=== PATIENT | female | born 1970 | race Caucasian/White ===

== ENCOUNTER 2019-11-27 12:13 | Inpatient (IN) | payer BC, SELFPAY ==
[2019-11-27] VITALS (32 sets, daily range): BP systolic 80–113; BP diastolic 56–73; PULSE 56–84; RESP 18–30; TEMP 35.1–36.7; O2SAT 82–100; BMI 53.5
--- NOTE | ~2019-11-27 | XR_ITS ---
EXAMINATION: XR chest 1V portable DATE: 11/28/2019 19:08 INDICATION: Shortness of breath. COVID-19 pneumonia. TECHNIQUE: A single frontal view of the chest was obtained. COMPARISON: Chest single view 11/27/2019 FINDINGS: There are patchy airspace opacities in all lung zones bilaterally. No pleural effusion or p neumothorax. The heart size is normal. IMPRESSION: 1. Worsened diffuse lung disease, consistent with pneumonia versus acute respiratory distress syndrom e (ARDS). Reviewed, dictated and finalized at location A. IMPRESSION: 1. Worsened diffuse lung disease, consistent with pneumonia versus acute respir atory distress syndrome (ARDS).
--- NOTE | ~2019-11-27 | XR_ITS ---
EXAMINATION: XR chest 1V portable DATE: 12/02/2019 06:04 INDICATION: COVID 19 TECHNIQUE: frontal view of the chest was obtained. COMPARISON: Chest radiograph dated 12/01/2019 FINDINGS: Small lung volumes which may be exaggerated by lordotic positioning. No significant interval change i n bilateral patchy airspace opacities throughout both lungs. No pleural effusion or pneumothorax. The cardiomediastinal silhouette is normal. Postoperative changes at the bilateral shoulders. IMPRESSION: 1. Small lung volumes with unchanged diffuse bilateral airspace opacities consistent with pneumonia. Reviewed, dictated and finalized at location A. IMPRESSION: 1. Small lung volumes with unchanged diffuse bilateral airspace opacities consi stent with pneumonia.
--- NOTE | ~2019-11-27 | XR_ITS ---
EXAMINATION: XR chest 1V portable DATE: 11/30/2019 06:13 INDICATION: COVID 19 pneumonia TECHNIQUE: frontal view of the chest was obtained. COMPARISON: Chest radiograph dated 11/29/2019 FINDINGS: No significant interval change in patchy airspace opacities throughout both lungs. No pleural effusio n or pneumothorax. The cardiomediastinal silhouette is normal. Postoperative changes of distal right acromioplasty and right clavicle resection as well as suture anchor at the left humeral head consiste nt with prior rotator cuff repair. IMPRESSION: 1. No significant change in diffuse bilateral lung disease consistent with pneumonia. Reviewed, dictated and finalized at location A. IMPRESSION: 1. No significant change in diffuse bilateral lung disease consistent with pneu monia.
--- NOTE | ~2019-11-27 | XR_ITS ---
EXAMINATION: XR chest 1V portable DATE: 11/27/2019 12:50 INDICATION: COVID-19 pneumonia. Weakness. TECHNIQUE: A single frontal view of the chest was obtained. COMPARISON: None. FINDINGS: There are patchy airspace opacities in all right lung zones and left mid and lower lung zon es. No pleural effusion or pneumothorax. The heart size is normal. There is a suture anchor in left h umeral head. There are likely changes of distal right clavicle resection. IMPRESSION: 1. Diffuse lung disease, consistent with pneumonia. Reviewed, dictated and finalized at location A.
--- NOTE | ~2019-11-27 | XR_ITS ---
EXAMINATION: XR chest 1V portable DATE: 11/29/2019 05:37 INDICATION: COVID 19 pneumonia. Shortness of breath. TECHNIQUE: frontal view of the chest was obtained. COMPARISON: Chest radiograph dated 11/28/2019 FINDINGS: No significant interval change in patchy airspace opacities throughout both lungs. No pleural effusio n or pneumothorax. The cardiomediastinal silhouette is normal. Status post distal right clavicle exci ralph and likely acromioplasty. IMPRESSION: 1. No significant change in diffuse bilateral lung disease consistent with pneumonia. Reviewed, dictated and finalized at location A. IMPRESSION: 1. No significant change in diffuse bilateral lung disease consistent with pneu monia.
--- NOTE | ~2019-11-27 | XR_ITS ---
EXAMINATION: XR chest 1V portable DATE: 12/01/2019 06:15 INDICATION: COVID 19 TECHNIQUE: frontal view of the chest was obtained. COMPARISON: Chest radiograph dated 11/30/2019 FINDINGS: No interval change patchy airspace opacities throughout both lungs. No pleural effusion or pneumothor ax. The cardiomediastinal silhouette is normal. Postoperative change at the bilateral shoulders. IMPRESSION: 1. Unchanged diffuse bilateral airspace opacities consistent with pneumonia. Reviewed, dictated and finalized at location A.
--- NOTE | ~2019-11-27 | XR_ITS ---
EXAMINATION: XR chest 1V portable INDICATION: Shortness of breath, COVID pneumonia TECHNIQUE: Portable AP chest at 0556 hours COMPARISON: 12/02/2019 FINDINGS: Diffuse patchy bilateral airspace opacities persist without significant change. The lung vo lumes are low. There is no pleural effusion or pneumothorax. The cardiomediastinal silhouette is norm al. There appear to be changes of right distal clavicle resection. A suture anchor is noted in the le ft humeral head. IMPRESSION: 1. Diffuse lung disease without significant change, consistent with pneumonia. Reviewed, dictated and finalized at location A.
--- NOTE | 2019-11-27 12:20 | ECG_ITS ---
Measurements Intervals [place] Rate: 78 P: 26 [place]: 176 QRS: -5 QRSD: 89 T: -5 QT: 365 QTc: 418 Interpretive Statements SINUS RHYTHM VOLTAGE CRITERIA FOR LVH BORDERLINE T WAVE ABNORMALITY- ANT/INF LEADS BASELINE ARTIFACT- I, II, AVR, AVF BORDERLINE ECG Electronically Signed On 11-27-2019 12:47:19 CDT by Gordon Antoine D.O.
--- NOTE | 2019-11-27 12:21 | PC.NURSE ---
Patients Vijay wish to be notified or updated if any questions at [phone].
[2019-11-27] MEDS: FAMOTIDINE 20 MG/2 ML VIAL IV PUSH ×2 (12:43→21:29)
[2019-11-27] MEDS: SODIUM CHLORIDE 0.9% IV 1,000 ML 999 ML IV CONT ×2 (12:43→14:24)
[2019-11-27 13:07] LABS: Hematocrit 39.7 % (37.0-47.0); Hemoglobin 12.6 g/dL (12.0-15.0); Mean Corpuscular HGB Conc 31.7 g/dl (32-36); Mean Corpuscular Hemoglobin 28.8 pg (26-34); Mean Corpuscular Volume 90.6 fl (80-100); Mean Platelet Volume 10.1 fl (7.4-10.4); Platelet Count Result 208 k/mm3 (150-375); Red Blood Count 4.38 M/mm3 (4.2-5.4); Red Cell Distribution Width 13.1 % (11.5-14.5); White Blood Count 4.9 K/mm3 (4.5-10.0)
--- NOTE | 2019-11-27 13:13 | ED.GENADULT ---
HPI - General Adult General Chief complaint: Weakness Stated complaint: + covid/weakness Time Seen by Provider: 11/27/19 12:20 Source: patient Mode of arrival: ambulatory Limitations: no limitations History of Present Illness HPI narrative: Patient is a 49-year-old female who presents to emergency department for evaluation of generalized weakness patient was diagnosed this week with COVID patient notes productive cough congestion rhinorrhea and decreased appetite. Patient notes she has not been wanting to eat over the last 2 days. Patient denies vomiting no she has had a few loose stools . Patient denies chest pain or dyspnea . Related Data Home Medications Medication Instructions Recorded Confirmed diclofenac sodium 75 mg PO BID 11/27/19 escitalopram oxalate 40 mg PO DAILY 11/27/19 lisinopril 20 mg PO DAILY 11/27/19 Allergies Allergy/AdvReac Type Severity Reaction Status Date / Time Sulfa (Sulfonamide Allergy Rash Verified 11/27/19 12:45 Antibiotics) Review of Systems Review of Systems: All systems reviewed & are unremarkable except as noted in HPI and below PMFSH Past Medical History Medical History (Updated 11/27/19 @ 14:26 by Tomás Betts PA-C) Hypertension Morbid obesity Surgical History Surgical History History of orthopedic surgery Social History Social History (Updated 11/27/19 @ 13:14 by Tomás Betts PA-C) Smoking status: Never smoker Exam Narrative: Exam Narrative: GENERAL: ILL-appearing, morbidly obese, and in no acute distress. HEAD: Normocephalic, atraumatic. EYES: PERRLA and EOMI. ENT: Nares clear, no rhinorrhea or epistaxis. Mucous membranes moist. Oropharynx without tonsillar hypertrophy exudate or other lesions. NECK: Supple. No adenopathy or masses. CHEST: Clear to auscultation. No respiratory distress. Coarse breath sounds throughout lung nsyder HEART: Regular rate and rhythm. No murmur heard. Normal peripheral pulses. ABDOMEN: Soft, nontender, nondistendeD EXTREMITIES: Normal range of motion. No edema. SKIN: Warm, dry, no rash. NEURO: No focal deficits. Alert and oriented x3. Cranial nerves II through XII grossly intact PSYCH: Normal mood and affect. Course Course Emergency Course: Patient in the room at this time resting comfortably has been hydrated given IV antibiotic and steroids and fluids. Patient became hypoxic with little activity and is now oxygen dependent will be placed in hospital for treatment to the hospitalist service patient is afebrile nontoxic-appearing at this time Consultations Consultation #1: Patient case discussed with hospitalist who is agreed to accept the patient Date: 11/27/19 Time: 14:24 Vital Signs Vital signs: Vital Signs Temperature 98.1 F 11/27/19 12:28 Pulse Rate 80 11/27/19 12:28 Respiratory Rate 20 11/27/19 12:28 Pulse Oximetry 100 11/27/19 12:28 Temperature 98.1 F 11/27/19 12:28 Pulse Rate 69 11/27/19 13:21 Respiratory Rate 25 H 11/27/19 13:21 Blood Pressure 104/59 L 11/27/19 13:21 Pulse Oximetry 97 11/27/19 13:21 Medical Decision Making MDM Narrative Medical decision making narrative: Patient with COVID became hypoxic with little activity will be placed in hospital given steroids antibiotics and fluids in the emergency department nontoxic felt appropriate for inpatient treatment agreeing to stay in hospital Vital Signs Vital Signs: Vital Signs Temperature 98.1 F 11/27/19 12:28 Pulse Rate 80 11/27/19 12:28 Respiratory Rate 20 11/27/19 12:28 Pulse Oximetry 100 11/27/19 12:28 Temperature 98.1 F 11/27/19 12:28 Pulse Rate 69 11/27/19 13:21 Respiratory Rate 25 H 11/27/19 13:21 Blood Pressure 104/59 L 11/27/19 13:21 Pulse Oximetry 97 11/27/19 13:21 Lab Data Result diagrams: 11/27/19 12:38 11/27/19 12:38 Labs: Lab Results 11/27/19 11/27/19
[2019-11-27 13:17] LABS: Lactic Acid Reflex 1.5 mmol/L (0.7-2.1)
[2019-11-27 13:20] LABS: Prothrombin Time 12.8 Seconds (11.1-14.7)
[2019-11-27 13:21] LABS: Partial Thromboplastin Time 31.8 SECONDS (22.3-36.8)
[2019-11-27 13:23] LABS: Alanine Aminotransferase 43 U/L (4-35); Albumin Level 3.8 g/dL (3.5-5.1); Alkaline Phosphatase 84 U/L (38-126); Aspartate Amino Transferase 85 U/L (14-36); Band Neutrophils Percent 13 % (0-6); Bilirubin,Total 0.5 mg/dL (0.2-1.3); Blood Urea Nitrogen 10 mg/dL (7-17); Calcium 8.1 mg/dL (8.4-10.2); Carbon Dioxide 29 mmol/L (22-30); Chloride 101 mmol/L (98-107); Eosinophils Absolute Manual 0.04 K/mm3 (0.02-0.5); Eosinophils Percent Manual 1 % (0-4); Estimated CRCL calculation 84 ml/min; Estimated Glomerular Filt Rate 59; Glucose 106 mg/dL (65-105); Lipase 29 U/L (23-300); Lymphocytes Absolute Manual 1.32 K/mm3 (1.1-4.5); Monocytes Absolute Manual 0.09 K/mm3 (0.1-0.90); Monocytes Percent Manual 2 % (3-9); Neutrophils Absolute Manual 3.43 K/mm3 (1.7-7.2); Neutrophils Percent Manual 57 % (46-73); Platelet Estimate Adequate (Adequate); Potassium 3.9 mmol/L (3.4-5.0); Sodium 137 mmol/L (137-145); Total Cells Counted 100
[2019-11-27 13:24] LABS: Ovalocytes 1+ (NORMAL)
[2019-11-27 13:25] LABS: Add Urine Microscopic? YES; Appearance Urine Clear (Clear); Bacteria Urine Trace /hpf; Bilirubin Urine Negative (Negative); Blood Urine Negative (Negative); Color Urine Amber (Yellow); Glucose Urine UA Negative (Negative); Hyaline Casts Urine 30-49 /lpf; Ketones Urine Negative (Negative); Leukocyte Esterase Ur Negative LEU/UL (Negative); Mucus Urine Moderate /lpf; Nitrate Urine Negative (Negative); Protein Urine 1+ mg/dL (Negative); RBC Urine 0-2 /hpf (0-2); Specific Grav Ur 1.029 (1.001-1.035); Squamous Epithelial Cell Urine Moderate /hpf (Few)
[2019-11-27 13:39] LABS: CRP 17.6 mg/dL (<1.0)
--- NOTE | 2019-11-27 14:06 | PC.NURSE ---
AMBULATORY IN ROOM. SPO2 IN THE 80'S WHEN AMBULATING. PT DENIES SOB. C/O FEELING WEAK WHEN BEING UP. PLACED ON 02 2L NC. ERP AWARE.
[2019-11-27 15:22] LABS: Lactate Dehydrogenase 1091 U/L (313-618)
[2019-11-27] MEDS: LACTATED RINGERS 1,000 ML 125 ML IV CONT (16:26)
--- NOTE | 2019-11-27 16:31 | ADMGEN ---
This patient, Tameka Salmeron, was admitted to Intensive Care Unit-1. Patient/family oriented to hospital policies and general routines including ID bracelet, bed and alarms, visiting hours, pain management, procedures, bathroom and other care routines, personal items, smoking policy, room service/diet, and visiting hours. Valuables list has been completed. Information on how to activate the Rapid Response Team has been discussed. Patient/Family are encouraged to report perceived risks to care and to ask questions if they do not understand what they are told or what they should do.
--- NOTE | 2019-11-27 17:30 | PM.IMHP ---
H&P: HPI History of Present Illness Chief complaint: Weakness and generalized malaise. <Zita Welch PA-C - Last Filed: 11/28/19 00:47> Narrative: Tameka Salmeron is a 49-year-old female with hypertension, depression, and morbid obesity presented to the emergency department earlier this afternoon from home for evaluation of weakness and generalized malaise. She has not felt great since right around the 15 of November and she initially thought perhaps her allergies were acting up given sore throat, postnasal drip, and dry cough. On November 18 she lost sense of taste and smell and [facility] She received a call from the [facility] with reports of a positive test, and she and her have been isolating since that time. Prior to that, they had limited their exposure in the community and in fact both she and her have been working at home since July. 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 An employee at the pharmacy tested positive for COVID within the last couple of weeks and it is assumed that is where she contacted the virus. It sounds as though she has been running a fever off and on for over a week. She has not had much to eat due to decreased appetite from the loss of smell and taste, but she denies overt nausea and vomiting. Her stools have been a bit loose for several days. She denies headache, productive cough, and shortness of breath. <Zita Welch PA-C - Last Filed: 11/28/19 00:47> Review of Systems Review of Systems: Narrative: Twelve systems were reviewed with pertinent positives and negatives as per HPI. Except as documented, all other systems were reviewed and are negative. <Zita Welch PA-C - Last Filed: 11/28/19 00:47> [facility] Past Medical History Medical History: Medical History (Updated 11/28/19 @ 18:51 by Nicanor Miles MD) Depression with anxiety Hypertension Morbid obesity Osteoarthritis <Zita Welch PA-C - Last Filed: 11/28/19 00:47> Surgical History Surgical History: Surgical History (Updated 11/27/19 @ 19:47 by Zita Welch PA-C) History of gastric bypass (~2003) History of orthopedic surgery History of ventral hernia repair (~2005) <Zita Welch PA-C - Last Filed: 11/28/19 00:47> Family History Family History: Family History Mother Lung cancer Father Heart disease Sibling Hypertension <Zita Welch PA-C - Last Filed: 11/28/19 00:47> Social History Social History: Social History (Updated 11/27/19 @ 19:54 by Zita Welch PA-C) Social History: Surrogate decision maker: Vijay Salmeron, spouse. Code status: Full code. Smoking status: Never smoker Alcohol intake: never Substance use: never Additional living arrangements comments: Patient lives with her in [place]. Additional occupation/education comments: Has been working at home since July 2019. Gender identity (if verbalized by the patient): Female Spiritual care concerns: No <Zita Welch PA-C - Last Filed: 11/28/19 00:47> Meds Home Medications and Allergies Home medications: Home Medications Medication Instructions Recorded Confirmed Type diclofenac sodium 75 mg PO BID 11/27/19 11/27/19 History escitalopram oxalate 40 mg PO DAILY 11/27/19 11/27/19 History lisinopril 20 mg PO DAILY 11/27/19 11/27/19 History <Zita Welch PA-C - Last Filed: 11/28/19 00:47> Allergies/Adverse reactions: Allergies Allergy/AdvReac Type Severity Reaction Status Date / Time Sulfa (Sulfonamide Allergy Rash Verified 11/27/19 12:45 Antibiotics) <Zita Welch PA-C - Last Filed: 11/28/19 00:47> Vital Signs Vital Signs - 24 hr 11/27/19 12:28 11/27/19 12:48
[2019-11-28] VITALS (22 sets, daily range): BP systolic 109–143; BP diastolic 67–92; PULSE 52–104; RESP 12–35; TEMP 35.6–37.6; O2SAT 84–100
[2019-11-28] MEDS: LACTATED RINGERS 1,000 ML 125 ML IV CONT ×2 (00:26→15:50)
[2019-11-28 05:46] LABS: Basophils Percent Auto 0.3 % (0.2-1.2); Hematocrit 36.4 % (37.0-47.0); Hemoglobin 11.6 g/dL (12.0-15.0); Immature Granulocyte Absolute 0.05 K/mm3 (0.00-0.031); Immature Granulocyte Percent A 1.3 % (0-0.5); Lymphocytes Absolute Auto 1.07 K/mm3 (0.9-3.2); Lymphocytes Percent Auto 27.8 % (18.3-44.2); Mean Corpuscular HGB Conc 31.9 g/dl (32-36); Mean Corpuscular Hemoglobin 28.9 pg (26-34); Mean Corpuscular Volume 90.5 fl (80-100); Mean Platelet Volume 10.4 fl (7.4-10.4); Monocytes Absolute Auto 0.1 K/mm3 (0.1-0.6); Monocytes Percent Auto 3.4 % (2.6-8.5); Neutrophils Absolute Auto 2.6 K/mm3 (1.3-6.7); Neutrophils Percent Auto 67.2 % (45.5-73.1); Platelet Count Result 207 k/mm3 (150-375); Red Blood Count 4.02 M/mm3 (4.2-5.4); Red Cell Distribution Width 12.9 % (11.5-14.5); White Blood Count 3.9 K/mm3 (4.5-10.0)
[2019-11-28 05:57] LABS: D Dimer 1.19 ug/mL (<0.48)
[2019-11-28 06:04] LABS: Alanine Aminotransferase 38 U/L (4-35); Albumin Level 3.6 g/dL (3.5-5.1); Alkaline Phosphatase 79 U/L (38-126); Aspartate Amino Transferase 66 U/L (14-36); Bilirubin,Total 0.3 mg/dL (0.2-1.3); Blood Urea Nitrogen 8 mg/dL (7-17); Calcium 8.2 mg/dL (8.4-10.2); Carbon Dioxide 27 mmol/L (22-30); Chloride 108 mmol/L (98-107); Estimated CRCL calculation 138 ml/min; Estimated Glomerular Filt Rate > 60; Glucose 144 mg/dL (65-105); Lactate Dehydrogenase 1104 U/L (313-618); Potassium 3.9 mmol/L (3.4-5.0); Sodium 142 mmol/L (137-145)
[2019-11-28] MEDS: FAMOTIDINE 20 MG/2 ML VIAL IV PUSH ×2 (08:57→20:44)
[2019-11-28] MEDS: ENOXAPARIN 40 MG/0.4 ML SYRINGE SUB-Q (08:57)
[2019-11-28] MEDS: DEXAMETHASONE SOD PHOS INJ 4 MG/ML VIAL 6 MG IV PUSH (08:58)
[2019-11-28] MEDS: ESCITALOPRAM OXALATE 10 MG TABLET 40 MG PO (08:58)
--- NOTE | 2019-11-28 09:52 | PC.NURSE ---
Patient up to bathroom without assistance. Remove self from telemetry. Reviewed safe precautions with patient. patient verbalized understanding.
[2019-11-28] MEDS: guaiFENesin/DEXTROMETHORPHAN 10 ML UDC 5 ML PO ×2 (13:42→20:48)
--- NOTE | 2019-11-28 18:28 | PM.IMPN ---
Progress Note: A&P Assessment and Plan (1) Acute respiratory failure with hypoxia: Code(s): J96.01 - Acute respiratory failure with hypoxia Status: Acute Assessment and Plan: Patient presented to the emergency room with weakness. Patient was tachypneic and hypoxic. Patient was placed on 2 L on admission. Chest x-ray showing diffuse lung disease. Patient is COVID positive. IV fluids and antibiotics. No ABG. Dexamethasone was started. She is now up to 5 L. Continue to monitor closely in the IMU. (2) COVID-19: Code(s): U07.1 - COVID-19 Status: Acute Assessment and Plan: Patient has been symptomatic since November 15. Patient tested positive for COVID on 11/21/2019. She is almost 2 weeks out from infection. Her hypoxia is worsening. She has been started on dexamethasone. Consider remdesivir if her condition worsens. Continue contact, airborne, and isolation precautions. Repeat chest x-ray. Check ABG to exclude undiagnosed sleep apnea/obesity hypoventilation syndrome. Stop IV fluids. COVID inflammatory markers not much changed. Will trend CRP. (3) Pneumonia: Qualifiers: Pneumonia type: due to unspecified organism Laterality: bilateral Lung location: unspecified part of lung Qualified Code(s): J18.9 - Pneumonia, unspecified organism Code(s): J18.9 - Pneumonia, unspecified organism Status: Acute Assessment and Plan: Chest x-ray findings more consistent with COVID but cannot exclude underlying bacterial pneumonia which could explain her worsening symptoms so far out from onset of symptoms. She also has bandemia on admission but normal white count. White count is low today related to viral illness but elevated immature cells to suggest bone marrow strain. BCx NGTD. Schedule Albuterol MDI. Continue Azithromycin and ceftriaxone. Will add Robitussin for cough. (4) Hypertension: Qualifiers: Hypertension type: essential hypertension Qualified Code(s): I10 - Essential (primary) hypertension Code(s): I10 - Essential (primary) hypertension Status: Acute Assessment and Plan: Blood pressure reviewed on 11/28/2019. Blood pressure was soft on the day of admission but has improved today. Will continue to hold lisinopril. Will continue to monitor for now. Stop IV fluids. (5) Elevated LFTs: Code(s): R79.89 - Other specified abnormal findings of blood chemistry Status: Acute Assessment and Plan: AST and ALT mildly elevated on admission. Repeat levels are trending downward. Suspect related to COVID. Will check creatinine kinase. Continue to monitor LFTs. Consider further workup if levels trend upward. (6) Depression with anxiety: Code(s): F41.8 - Other specified anxiety disorders Status: Acute Assessment and Plan: Mood stable. Patient in good spirits. Continue escitalopram. Subjective Date/time seen: 11/28/19 18:28 Interval history: 49yo female with HTN here for increasing weakness. She has tested positive for COVID on November 20. Date of service 11/28/2019: Her sister is a pharmacist who was exposed by a co-worker. Patient states all exposed family members are self-quarantined. Patient complains mostly of a cough today. Cough is dry. No nausea or vomiting. Poor appetite. She has lost a sense of taste and smell. No chest pain. No shortness of breath. We did get the [facility] report showing that she was positive for COVID. Exam Narrative: Exam Narrative: AF 124/91 68 29 92% 5L Gen: NARD Chest: few dry bibasilar inspiratory crackles, air exchange, no conversational dyspnea CV: RRR S1/S2; Tele showing occasional PVCs Abd: Soft. Obese. N
[2019-11-28 19:16] LABS: Alveolar/Arterial O2 Gradient 192.6 mmHg; Base Excess ABG 0.6 mEq/l (+/-2.0); Fractional Inspired Oxygen 40 %; HCO3 ABG 24.5 mEq/l (22.0-26.0); Oxygen Content ABG 14.9 %vol (16.0-22.0); Oxyhemoglobin 84.7 % THb (90.0-100.0); PCO2 ABG 37.2 mmHg (35.0-45.0); PO2 FiO2 Ratio Arterial Blood 1.25 %; Total Hemoglobin 12.5 g/dL (12.0-18.0); pH ABG 7.437 (7.350-7.450)
[2019-11-28 19:19] LABS: Device NASAL CANNULA; Modified Allen's Test Pass; Oxygen Saturation ABG 86.7 % (95.0-100.0); PO2 ABG 49.8 mmHg (80.0-100.0); Site Drawn LEFT RADIAL
[2019-11-28] MEDS: ALBUTEROL SULFATE (*SP) AEROSOL 1 PUFF 2 PUFF INHALATION (20:43)
[2019-11-28] MEDS: FUROSEMIDE INJ 40 MG/4 ML VIAL IV PUSH (21:40)
[2019-11-28] MEDS: REMDESIVIR 200 MG/NS 250 ML 200 MG/250 ML BAG 250 MG IVPB (21:43)
[2019-11-28 21:57] LABS: Creatine Kinase 141 U/L (30-135)
[2019-11-29] VITALS (18 sets, daily range): BP systolic 104–134; BP diastolic 52–83; PULSE 51–93; RESP 19–34; TEMP 35.7–37.3; O2SAT 96–100
[2019-11-29 04:55] LABS: Alveolar/Arterial O2 Gradient 377.5 mmHg; Base Excess ABG 2.6 mEq/l (+/-2.0); Carboxyhemoglobin 0.3 % THb (0-2.0); Fractional Inspired Oxygen 70 %; HCO3 ABG 26.4 mEq/l (22.0-26.0); Methemoglobin ABG 0.3 %THb (0-1.5); Oxygen Content ABG 16.3 %vol (16.0-22.0); Oxygen Saturation ABG 96.4 % (95.0-100.0); Oxyhemoglobin 92.2 % THb (90.0-100.0); PCO2 ABG 38.3 mmHg (35.0-45.0); PO2 ABG 80.4 mmHg (80.0-100.0); PO2 FiO2 Ratio Arterial Blood 1.15 %; Reduced Hemoglobin 7.2 %THb (0-5.0); Total Hemoglobin 12.5 g/dL (12.0-18.0); pH ABG 7.457 (7.350-7.450)
[2019-11-29 04:58] LABS: Device HIGH FLOW NASAL CANN; Site Drawn LEFT BRACHIAL
[2019-11-29 06:32] LABS: Basophils Percent Auto 0.1 % (0.2-1.2); Eosinophils Percent Auto 0.1 % (0-4.4); Hematocrit 37.2 % (37.0-47.0); Hemoglobin 11.9 g/dL (12.0-15.0); Immature Granulocyte Absolute 0.08 K/mm3 (0.00-0.031); Immature Granulocyte Percent A 1.1 % (0-0.5); Lymphocytes Absolute Auto 1.61 K/mm3 (0.9-3.2); Lymphocytes Percent Auto 22.1 % (18.3-44.2); Mean Corpuscular Hemoglobin 28.7 pg (26-34); Mean Corpuscular Volume 89.6 fl (80-100); Mean Platelet Volume 10.2 fl (7.4-10.4); Monocytes Absolute Auto 0.2 K/mm3 (0.1-0.6); Monocytes Percent Auto 3.2 % (2.6-8.5); Neutrophils Absolute Auto 5.4 K/mm3 (1.3-6.7); Neutrophils Percent Auto 73.4 % (45.5-73.1); Platelet Count Result 282 k/mm3 (150-375); Red Blood Count 4.15 M/mm3 (4.2-5.4); White Blood Count 7.3 K/mm3 (4.5-10.0)
[2019-11-29 06:43] LABS: D Dimer 0.99 ug/mL (<0.48)
[2019-11-29 06:52] LABS: Alanine Aminotransferase 37 U/L (4-35); Albumin Level 3.7 g/dL (3.5-5.1); Alkaline Phosphatase 73 U/L (38-126); Aspartate Amino Transferase 60 U/L (14-36); Bilirubin,Total 0.4 mg/dL (0.2-1.3); Blood Urea Nitrogen 9 mg/dL (7-17); CRP 6.5 mg/dL (<1.0); Calcium 8.3 mg/dL (8.4-10.2); Carbon Dioxide 31 mmol/L (22-30); Chloride 102 mmol/L (98-107); Estimated CRCL calculation 106 ml/min; Estimated Glomerular Filt Rate > 60; Glucose 101 mg/dL (65-105); Lactate Dehydrogenase 1130 U/L (313-618); Magnesium 1.9 mg/dL (1.6-2.3); Potassium 3.5 mmol/L (3.4-5.0); Sodium 140 mmol/L (137-145)
[2019-11-29] MEDS: ALBUTEROL SULFATE (*SP) AEROSOL 1 PUFF 2 PUFF INHALATION ×4 (08:05→20:55)
--- NOTE | 2019-11-29 09:50 | WPDCNINT ---
Assessment and Plan Assessment and plan (1) Acute respiratory failure with hypoxia: Code(s): J96.01 - Acute respiratory failure with hypoxia Status: Acute Assessment and Plan: Acute Respiratory failure secondary to COVID-19 pneumonia, questionable bacterial pneumonia Worsening hypoxia since admission and patient now on 15 L nasal cannula with on and off addition non-rebreather mask ABG and PCXR reviewed and will repeat in am. Lasix 40 mg IV given last night fluids have been discussed Dexamethasone 6 mg IV q.day Patient was started on Remdesivir last night and was given 1st dose. Continue for 5 days Patient on Lovenox for DVT prophylaxis. D-dimer level reviewed Continue ICU monitoring On empiric Rocephin and azithromycin for bacterial coverage. Bronchodilators Incentive spirometry Encouraged patient to lay prone as much as she can Monitor inflammatory and coagulopathic markers I spoke to patient regarding option of convalscent plasma for treatment for COVID-19. I have explained her that it is a investigational mode of therapy with some evidence pointing towards benefit when used early in course of COVID-19. I have explained the risks that come with plasma transfusion which are similar to regular plasma transfusion including allergic reaction, transfusion reaction, and rare possibility of transmission of infection like HIV or hepatitis. I have explained to the patient that the therapy is not proven but may offer benefit in her situation with worsening COVID-19 pneumonia and patient requiring increased oxygen support but not on mechanical ventilation. Patient is agreeable to proceed and understands all the risks possible benefit. I have applied for enrollment of patient in early access program through [facility] and contacted our blood bank. Paperwork has been completed (2) COVID-19: Code(s): U07.1 - COVID-19 Status: Acute Assessment and Plan: See above (3) Pneumonia: Qualifiers: Laterality: bilateral Lung location: unspecified part of lung Pneumonia type: due to unspecified organism Qualified Code(s): J18.9 - Pneumonia, unspecified organism Code(s): J18.9 - Pneumonia, unspecified organism Status: Acute Assessment and Plan: See above (4) Hypertension: Qualifiers: Hypertension type: essential hypertension Qualified Code(s): I10 - Essential (primary) hypertension Code(s): I10 - Essential (primary) hypertension Status: Acute Assessment and Plan: Controlled at this time will continue to monitor and treat as needed (5) Elevated LFTs: Code(s): R79.89 - Other specified abnormal findings of blood chemistry Status: Acute Assessment and Plan: AST and ALT mildly elevated on admission. Repeat levels are trending downward. Suspect related to COVID or fatty liver from obesity. Continue to monitor LFTs. (6) Depression with anxiety: Code(s): F41.8 - Other specified anxiety disorders Status: Acute Assessment and Plan: Patient on Lexapro DVT prophylaxis -Lovenox q.12 hours Stress ulcer prophylaxis -patient is on Pepcid Nutrition -regular diet Code Status - Full Code Total Critical Care Time - 45 minutes Due to a high probability of clinically significant, life threatening deterioration, the patient required my highest level of preparedness to intervene emergently and I personally spent this critical care time directly and personally managing the patient. This critical care time included obtaining a history; examining the patient; pulse oximetry; ordering and review of studies; arranging urgent treatment with development of a management plan; evaluation of patient's response to treatment; frequent reassessment; and discussions with other providers. It was exclusive of separately billable procedures and treating other patients and teaching time. Please see Assessment and Plan section and the
[2019-11-29] MEDS: guaiFENesin/DEXTROMETHORPHAN 10 ML UDC 5 ML PO (10:11)
[2019-11-29] MEDS: ESCITALOPRAM OXALATE 10 MG TABLET 40 MG PO (10:12)
[2019-11-29] MEDS: ENOXAPARIN 40 MG/0.4 ML SYRINGE SUB-Q ×2 (10:12→20:14)
[2019-11-29] MEDS: DEXAMETHASONE SOD PHOS INJ 4 MG/ML VIAL 6 MG IV PUSH (10:13)
[2019-11-29] MEDS: FAMOTIDINE 20 MG/2 ML VIAL IV PUSH ×2 (10:13→20:16)
[2019-11-29] MEDS: SODIUM CHLORIDE 0.9% IV 250 ML 999 ML (13:30)
--- NOTE | 2019-11-29 17:50 | PM.IMPN ---
Progress Note: A&P Assessment and Plan (1) Acute respiratory failure with hypoxia: Code(s): J96.01 - Acute respiratory failure with hypoxia Status: Acute Assessment and Plan: Patient presented to the emergency room with weakness. Patient was tachypneic and hypoxic. Patient was placed on 2 L on admission. Chest x-ray showing diffuse lung disease. Patient is COVID positive. IV fluids and antibiotics. No ABG. Dexamethasone was started 6 mg daily. She is now up to 15 L. Continue to monitor closely in the IMU. (2) COVID-19: Code(s): U07.1 - COVID-19 Status: Acute Assessment and Plan: Patient has been symptomatic since November 15. Patient tested positive for COVID on 11/21/2019. She is almost 2 weeks out from infection. Her hypoxia is worsening. She has been started on dexamethasone and now remdesivir . Continue contact, airborne, and isolation precautions. Repeat chest x-ray. Convalescent plasma to be given. Stopped IV fluids. COVID inflammatory markers not much changed. Will trend CRP. B.i.d. DVT prophylaxis (3) Pneumonia: Qualifiers: Laterality: bilateral Lung location: unspecified part of lung Pneumonia type: due to unspecified organism Qualified Code(s): J18.9 - Pneumonia, unspecified organism Code(s): J18.9 - Pneumonia, unspecified organism Status: Acute Assessment and Plan: Chest x-ray findings more consistent with COVID but cannot exclude underlying bacterial pneumonia which could explain her worsening symptoms so far out from onset of symptoms. She also has bandemia on admission but normal white count. White count is low on admission related to viral illness but elevated immature cells to suggest bone marrow strain. BCx NGTD. Schedule Albuterol MDI. Continue Azithromycin and ceftriaxone. Will add Robitussin for cough. (4) Hypertension: Qualifiers: Hypertension type: essential hypertension Qualified Code(s): I10 - Essential (primary) hypertension Code(s): I10 - Essential (primary) hypertension Status: Acute Assessment and Plan: Blood pressure reviewed on 11/29/2019. Blood pressure was soft on the day of admission but has improved today. Will continue to hold lisinopril. Will continue to monitor for now. Stopped IV fluids. (5) Elevated LFTs: Code(s): R79.89 - Other specified abnormal findings of blood chemistry Status: Acute Assessment and Plan: AST and ALT mildly elevated on admission. Repeat levels are trending downward. Suspect related to COVID. . Continue to monitor LFTs. Consider further workup if levels trend upward. (6) Depression with anxiety: Code(s): F41.8 - Other specified anxiety disorders Status: Acute Assessment and Plan: Mood stable. Patient in good spirits. Continue escitalopram. Subjective Date/time seen: 11/29/19 17:50 Interval history: 49yo female with HTN here for increasing weakness. She has tested positive for COVID on November 20. Date of service 11/29/2019: Her sister is a pharmacist who was exposed by a co-worker. Patient states all exposed family members are self-quarantined. Patient complains mostly of a cough today. Cough is dry. No nausea or vomiting. Poor appetite. She has lost a sense of taste and smell. No chest pain. No shortness of breath. We did get the [facility] report showing that she was positive for COVID. Feels a little better today Exam Narrative: Exam Narrative: AF 104/60 54 22 99% 15L Gen: NARD Chest: few dry bibasilar inspiratory crackles, air exchange, no conversational dyspnea CV: RRR S1/S2; Tele showing occasional PVCs Abd: Soft. Obese. Nontender. Positive baldev
[2019-11-29] MEDS: REMDESIVIR 100 MG/NS 250 ML 100 MG/250 ML BAG 250 MG IVPB (20:18)
[2019-11-30] VITALS (15 sets, daily range): BP systolic 102–156; BP diastolic 47–86; PULSE 42–64; RESP 17–28; TEMP 35.7–36.3; O2SAT 92–100
[2019-11-30] MEDS: guaiFENesin/DEXTROMETHORPHAN 10 ML UDC 5 ML PO ×3 (00:14→14:35)
[2019-11-30 04:41] LABS: Basophils Percent Auto 0.2 % (0.2-1.2); Eosinophils Percent Auto 0.2 % (0-4.4); Hematocrit 33.9 % (37.0-47.0); Immature Granulocyte Absolute 0.07 K/mm3 (0.00-0.031); Immature Granulocyte Percent A 1.5 % (0-0.5); Lymphocytes Absolute Auto 1.16 K/mm3 (0.9-3.2); Lymphocytes Percent Auto 24.1 % (18.3-44.2); Mean Corpuscular HGB Conc 32.4 g/dl (32-36); Mean Corpuscular Hemoglobin 29.2 pg (26-34); Mean Corpuscular Volume 89.9 fl (80-100); Mean Platelet Volume 9.6 fl (7.4-10.4); Monocytes Absolute Auto 0.3 K/mm3 (0.1-0.6); Monocytes Percent Auto 6.4 % (2.6-8.5); Neutrophils Absolute Auto 3.3 K/mm3 (1.3-6.7); Neutrophils Percent Auto 67.6 % (45.5-73.1); Platelet Count Result 236 k/mm3 (150-375); Red Blood Count 3.77 M/mm3 (4.2-5.4); White Blood Count 4.8 K/mm3 (4.5-10.0)
[2019-11-30 04:51] LABS: Alveolar/Arterial O2 Gradient 505.4 mmHg; Base Excess ABG 0.9 mEq/l (+/-2.0); Fractional Inspired Oxygen 100 %; Methemoglobin ABG 0.5 %THb (0-1.5); Oxygen Content ABG 22.4 %vol (16.0-22.0); Oxygen Saturation ABG 99.2 % (95.0-100.0); Oxyhemoglobin 98.2 % THb (90.0-100.0); PCO2 ABG 38.5 mmHg (35.0-45.0); PO2 ABG 169.1 mmHg (80.0-100.0); PO2 FiO2 Ratio Arterial Blood 1.69 %; Reduced Hemoglobin 1.3 %THb (0-5.0); pH ABG 7.431 (7.350-7.450)
[2019-11-30 04:52] LABS: D Dimer 0.58 ug/mL (<0.48)
[2019-11-30 04:52] LABS: Device NON-REBREATHER MASK; Modified Allen's Test Pass; Site Drawn RIGHT RADIAL
[2019-11-30 04:56] LABS: Alanine Aminotransferase 33 U/L (4-35); Albumin Level 3.4 g/dL (3.5-5.1); Alkaline Phosphatase 64 U/L (38-126); Aspartate Amino Transferase 46 U/L (14-36); Bilirubin,Total 0.3 mg/dL (0.2-1.3); Blood Urea Nitrogen 12 mg/dL (7-17); CRP 4.4 mg/dL (<1.0); Calcium 8.1 mg/dL (8.4-10.2); Carbon Dioxide 32 mmol/L (22-30); Chloride 101 mmol/L (98-107); Estimated CRCL calculation 120 ml/min; Estimated Glomerular Filt Rate > 60; Glucose 108 mg/dL (65-105); Lactate Dehydrogenase 836 U/L (313-618); Magnesium 2.1 mg/dL (1.6-2.3); Potassium 3.5 mmol/L (3.4-5.0); Sodium 141 mmol/L (137-145)
--- NOTE | 2019-11-30 07:30 | WPDINTPN ---
Progress Note: A&P Assessment and Plan (1) Acute respiratory failure with hypoxia: Code(s): J96.01 - Acute respiratory failure with hypoxia Status: Acute Assessment and Plan: Acute Respiratory failure secondary to COVID-19 pneumonia, questionable bacterial pneumonia Patient appears clinically improved, oxygen requirement is slightly down inflammatory and coagulopathic markers are decreased ABG and PCXR reviewed and will repeat in am. Lasix 40 mg IV given 11/27 fluids have been discontinued goal is to keep patient dry Dexamethasone 6 mg IV q.day started 11/26 Patient was started on Remdesivir 11/27 1 unit of convalscent plasma given on 11/28 Patient on Lovenox for DVT prophylaxis. D-dimer level decreasing Continue ICU monitoring On empiric Rocephin and azithromycin for bacterial coverage. Bronchodilators Incentive spirometry Out of bed and up in chair Encouraged patient to lay prone as much as she can when she is in bed Improving inflammatory and coagulopathic markers (2) COVID-19: Code(s): U07.1 - COVID-19 Status: Acute Assessment and Plan: See above (3) Pneumonia: Qualifiers: Laterality: bilateral Lung location: unspecified part of lung Pneumonia type: due to unspecified organism Qualified Code(s): J18.9 - Pneumonia, unspecified organism Code(s): J18.9 - Pneumonia, unspecified organism Status: Acute Assessment and Plan: See above (4) Hypertension: Qualifiers: Hypertension type: essential hypertension Qualified Code(s): I10 - Essential (primary) hypertension Code(s): I10 - Essential (primary) hypertension Status: Acute Assessment and Plan: Controlled at this time will continue to monitor and treat as needed (5) Elevated LFTs: Code(s): R79.89 - Other specified abnormal findings of blood chemistry Status: Acute Assessment and Plan: AST and ALT mildly elevated on admission. Repeat levels are trending downward. Suspect related to COVID or fatty liver from obesity. Continue to monitor LFTs. (6) Depression with anxiety: Code(s): F41.8 - Other specified anxiety disorders Status: Acute Assessment and Plan: Patient on Lexapro DVT prophylaxis -Lovenox q.12 hours Stress ulcer prophylaxis -patient is on Pepcid Nutrition -regular diet Code Status - Full Code Answered patient's questions Total Critical Care Time - 30 minutes Due to a high probability of clinically significant, life threatening deterioration, the patient required my highest level of preparedness to intervene emergently and I personally spent this critical care time directly and personally managing the patient. This critical care time included obtaining a history; examining the patient; pulse oximetry; ordering and review of studies; arranging urgent treatment with development of a management plan; evaluation of patient's response to treatment; frequent reassessment; and discussions with other providers. It was exclusive of separately billable procedures and treating other patients and teaching time. Please see Assessment and Plan section and the rest of the note for further information on patient assessment and treatment Subjective Date/time seen: 11/30/19 0730 Overnight events reviewed Afebrile Patient continues to complain of cough but is better than before Denies any shortness of breath, fever, chest pain, body ache, nausea vomiting, abdominal pain, diarrhea Appetite although is slightly better but is still poor, patient is able to smell food/taste She tolerated plasma infusion yesterday without any symptoms Wants to sit up in chair Review of Systems Review of Systems: All systems reviewed & are unremarkable except as noted in HPI and below (HPI) Exam Narrative: Exam Narrative: General: Pt is alert awake and in NAD Lungs/Chest: Trachea central Clear BS B/L, few crackles on bases Cardiac: RRR. Normal
[2019-11-30] MEDS: ALBUTEROL SULFATE (*SP) AEROSOL 1 PUFF 2 PUFF INHALATION ×4 (08:46→21:36)
[2019-11-30] MEDS: ENOXAPARIN 40 MG/0.4 ML SYRINGE SUB-Q ×2 (08:55→20:06)
[2019-11-30] MEDS: DEXAMETHASONE SOD PHOS INJ 4 MG/ML VIAL 6 MG IV PUSH (08:56)
[2019-11-30] MEDS: ESCITALOPRAM OXALATE 10 MG TABLET 40 MG PO (08:56)
[2019-11-30] MEDS: FAMOTIDINE 20 MG/2 ML VIAL IV PUSH ×2 (08:56→20:06)
--- NOTE | 2019-11-30 17:55 | PM.IMPN ---
Progress Note: A&P Assessment and Plan (1) Acute respiratory failure with hypoxia: Code(s): J96.01 - Acute respiratory failure with hypoxia Status: Acute Assessment and Plan: Patient presented to the emergency room with weakness. Patient was tachypneic and hypoxic. Patient was placed on 2 L on admission. Chest x-ray showing diffuse lung disease. Patient is COVID positive. Emperic antibiotics. No ABG. Dexamethasone was started 6 mg daily. She is now at 10 L. down from 15L (2) COVID-19: Code(s): U07.1 - COVID-19 Status: Acute Assessment and Plan: Patient has been symptomatic since November 15. Patient tested positive for COVID on 11/21/2019. She is almost 2 weeks out from infection. . She has been started on dexamethasone and remdesivir . Convalescent plasma given. 11/29. COVID inflammatory markers not much changed. Will trend CRP. B.i.d. DVT prophylaxis (3) Pneumonia: Qualifiers: Laterality: bilateral Lung location: unspecified part of lung Pneumonia type: due to unspecified organism Qualified Code(s): J18.9 - Pneumonia, unspecified organism Code(s): J18.9 - Pneumonia, unspecified organism Status: Acute Assessment and Plan: Chest x-ray findings more consistent with COVID but cannot exclude underlying bacterial pneumonia which could explain her worsening symptoms so far out from onset of symptoms. She also has bandemia on admission but normal white count. White count is low on admission related to viral illness but elevated immature cells to suggest bone marrow strain. BCx NGTD. Schedule Albuterol MDI. Continue Azithromycin and ceftriaxone. l added Robitussin for cough. (4) Hypertension: Qualifiers: Hypertension type: essential hypertension Qualified Code(s): I10 - Essential (primary) hypertension Code(s): I10 - Essential (primary) hypertension Status: Acute Assessment and Plan: Blood pressure reviewed on 11/30/2019. Blood pressure was soft on the day of admission but has improved today. Will continue to hold lisinopril. Will continue to monitor for now. . (5) Elevated LFTs: Code(s): R79.89 - Other specified abnormal findings of blood chemistry Status: Acute Assessment and Plan: AST and ALT mildly elevated on admission. Repeat levels are trending downward. Suspect related to COVID. . Continue to monitor LFTs. (6) Depression with anxiety: Code(s): F41.8 - Other specified anxiety disorders Status: Acute Assessment and Plan: Mood stable. Patient in good spirits. Continue escitalopram. Subjective Date/time seen: 11/30/19 17:55 Interval history: 49yo female with HTN here for increasing weakness. She has tested positive for COVID on November 20. Date of service 11/30/2019: Her sister is a pharmacist who was exposed by a co-worker. Patient complains mostly of a cough but is better. No nausea or vomiting. Appetite better. She has lost a sense of taste and smell. No chest pain. No shortness of breath. We did get the [facility] report showing that she was positive for COVID. Exam Narrative: Exam Narrative: AF 122/84 64 22 92% 10L Gen: NARD Chest: clear , hear no crackles today, , moving air better CV: RRR S1/S2; Abd: Soft. Obese. Nontender. Positive bowel sounds Ext: No pedal edema Neuro: No focal findings. Psych: Pleasant and cooperative. Normal mood and affect. Skin: Warm and dry. Objective Data Vital Signs Vital Signs: Vital Signs - 24 hr 11/29/19 18:00 11/29/19 20:00 11/29/19 20:54 Temperature 36.3 C L Pulse Rate 51 L 54 L 55 L Respiratory Rate 34 H 28 H 19 Blood Pressure 111/76 115/75 Pulse Oxi
[2019-11-30] MEDS: REMDESIVIR 100 MG/NS 250 ML 100 MG/250 ML BAG 250 MG IVPB (20:04)
[2019-11-30] MEDS: guaiFENesin/DEXTROMETHORPHAN 10 ML UDC PO (20:08)
[2019-12-01] VITALS (15 sets, daily range): BP systolic 111–139; BP diastolic 65–83; PULSE 46–71; RESP 18–28; TEMP 35.8–36.6; O2SAT 94–100
[2019-12-01] MEDS: guaiFENesin/DEXTROMETHORPHAN 10 ML UDC PO ×4 (01:14→22:36)
[2019-12-01 04:07] LABS: Alveolar/Arterial O2 Gradient 204.5 mmHg; Base Excess ABG 4.1 mEq/l (+/-2.0); Carboxyhemoglobin 0.3 % THb (0-2.0); Fractional Inspired Oxygen 52 %; HCO3 ABG 28.7 mEq/l (22.0-26.0); Methemoglobin ABG 0.4 %THb (0-1.5); Oxygen Content ABG 16.6 %vol (16.0-22.0); Oxygen Saturation ABG 98.4 % (95.0-100.0); Oxyhemoglobin 96.6 % THb (90.0-100.0); PCO2 ABG 43.2 mmHg (35.0-45.0); PO2 ABG 117.9 mmHg (80.0-100.0); PO2 FiO2 Ratio Arterial Blood 2.27 %; Reduced Hemoglobin 2.7 %THb (0-5.0); Total Hemoglobin 12.1 g/dL (12.0-18.0)
[2019-12-01 04:09] LABS: Device HIGH FLOW NASAL CANN; Modified Allen's Test Pass; Site Drawn RIGHT RADIAL
[2019-12-01 05:11] LABS: Basophils Percent Auto 0.3 % (0.2-1.2); Eosinophils Percent Auto 0.3 % (0-4.4); Hematocrit 37.2 % (37.0-47.0); Immature Granulocyte Absolute 0.16 K/mm3 (0.00-0.031); Immature Granulocyte Percent A 2.4 % (0-0.5); Lymphocytes Absolute Auto 1.83 K/mm3 (0.9-3.2); Lymphocytes Percent Auto 27.9 % (18.3-44.2); Mean Corpuscular HGB Conc 32.3 g/dl (32-36); Mean Corpuscular Hemoglobin 29.2 pg (26-34); Mean Corpuscular Volume 90.5 fl (80-100); Mean Platelet Volume 9.8 fl (7.4-10.4); Monocytes Absolute Auto 0.3 K/mm3 (0.1-0.6); Monocytes Percent Auto 4.6 % (2.6-8.5); Neutrophils Absolute Auto 4.2 K/mm3 (1.3-6.7); Neutrophils Percent Auto 64.5 % (45.5-73.1); Platelet Count Result 295 k/mm3 (150-375); Red Blood Count 4.11 M/mm3 (4.2-5.4); Red Cell Distribution Width 12.6 % (11.5-14.5); White Blood Count 6.6 K/mm3 (4.5-10.0)
[2019-12-01 05:37] LABS: Alanine Aminotransferase 27 U/L (4-35); Albumin Level 3.5 g/dL (3.5-5.1); Alkaline Phosphatase 63 U/L (38-126); Aspartate Amino Transferase 33 U/L (14-36); Bilirubin,Total 0.3 mg/dL (0.2-1.3); Blood Urea Nitrogen 15 mg/dL (7-17); CRP 2.9 mg/dL (<1.0); Calcium 8.4 mg/dL (8.4-10.2); Carbon Dioxide 29 mmol/L (22-30); Chloride 102 mmol/L (98-107); Estimated CRCL calculation 117 ml/min; Estimated Glomerular Filt Rate > 60; Glucose 108 mg/dL (65-105); Lactate Dehydrogenase 780 U/L (313-618); Magnesium 2.4 mg/dL (1.6-2.3); Potassium 3.5 mmol/L (3.4-5.0); Sodium 137 mmol/L (137-145)
[2019-12-01 05:57] LABS: D Dimer 0.86 ug/mL (<0.48)
--- NOTE | 2019-12-01 08:00 | WPDINTPN ---
Progress Note: A&P Assessment and Plan (1) Acute respiratory failure with hypoxia: Code(s): J96.01 - Acute respiratory failure with hypoxia Status: Acute Assessment and Plan: Acute Respiratory failure secondary to COVID-19 pneumonia, questionable bacterial pneumonia Patient is clinically improved with decreased oxygen requirement and improving inflammatory and coagulopathic markers are decreased. She was satting 100% on 8 L nasal cannula She also feels better ABG and PCXR reviewed Lasix 40 mg IV given 11/27 fluids have been discontinued goal is to keep patient dry Dexamethasone 6 mg IV q.day started 11/26 continue for 10 days Patient was started on Remdesivir 11/27 4 5 day treatment 1 unit of convalscent plasma given on 11/28 Patient on Lovenox for DVT prophylaxis. On empiric Rocephin and azithromycin for bacterial coverage. Bronchodilators Incentive spirometry Out of bed and up in chair Encouraged patient to lay prone as much as she can when she is in bed (2) COVID-19: Code(s): U07.1 - COVID-19 Status: Acute Assessment and Plan: See above (3) Pneumonia: Qualifiers: Laterality: bilateral Lung location: unspecified part of lung Pneumonia type: due to unspecified organism Qualified Code(s): J18.9 - Pneumonia, unspecified organism Code(s): J18.9 - Pneumonia, unspecified organism Status: Acute Assessment and Plan: See above (4) Hypertension: Qualifiers: Hypertension type: essential hypertension Qualified Code(s): I10 - Essential (primary) hypertension Code(s): I10 - Essential (primary) hypertension Status: Acute Assessment and Plan: Controlled at this time will continue to monitor and treat as needed (5) Elevated LFTs: Code(s): R79.89 - Other specified abnormal findings of blood chemistry Status: Acute Assessment and Plan: AST and ALT mildly elevated on admission. Repeat levels have normalized Suspect related to COVID or fatty liver from obesity. (6) Depression with anxiety: Code(s): F41.8 - Other specified anxiety disorders Status: Acute Assessment and Plan: Patient on Lexapro DVT prophylaxis -Lovenox q.12 hours Stress ulcer prophylaxis -patient is on Pepcid Nutrition -regular diet Code Status - Full Code Answered patient's questions. Discussed with Dr. Austin. Will transfer patient out of ICU to step-down unit today Subjective Date/time seen: 12/01/19 0750 Feels better today. No shortness of breath. Continues to have cough. Appetite is improving but are not at baseline. Sense of taste and smell is coming back but not normal. No fever chest pain body aches overnight Review of Systems Review of Systems: All systems reviewed & are unremarkable except as noted in HPI and below (HPI) Exam Narrative: Exam Narrative: General: Pt is alert awake and in NAD Lungs/Chest: Trachea central Clear BS B/L, few crackles on bases Cardiac: RRR. Normal S1 S2. No murmurs Circulation: Pedal pulses are intact and symmetrical. Abdomen: Normal bowel sounds.. Soft. NT. ND. Extremities: No clubbing, cyanosis or edema. Warm : Paige in place Neurologic: Follows commands. Moves all 4 extremities PERRL alert oriented x3 Skin: No Rash Objective Data Vital Signs Vital Signs: Vital Signs - 24 hr 11/30/19 10:00 11/30/19 12:00 11/30/19 13:00 Temperature 36.1 C L Pulse Rate 52 L 60 Respiratory Rate 25 H 23 H Blood Pressure 143/47 H 123/66 Pulse Oximetry 95 100 100 11/30/19 14:00 11/30/19 16:00 11/30/19 18:00 Temperature 35.7 C L Pulse Rate 60 52 L 60 Respiratory Rate 24 H 17 26 H Blood Pressure 109/80 122/84 102/65 Pulse Oximetry 94 92 93 11/30/19 20:00 11/30/19 22:00 11/30/19 22:51 Temperature 36.3 C L Pulse Rate 55 L 46 L 48 L Respiratory Rate 28 H 21 H 21 H Blood Pressure 156/81 H 125/75 Pulse Oximetry 96 96 96 12/01/19 00:00 12/01/19
[2019-12-01] MEDS: DEXAMETHASONE SOD PHOS INJ 4 MG/ML VIAL 6 MG IV PUSH (09:17)
[2019-12-01] MEDS: FAMOTIDINE 20 MG/2 ML VIAL IV PUSH ×2 (09:17→22:03)
[2019-12-01] MEDS: ENOXAPARIN 40 MG/0.4 ML SYRINGE SUB-Q ×2 (09:17→22:03)
[2019-12-01] MEDS: ESCITALOPRAM OXALATE 10 MG TABLET 40 MG PO (09:17)
[2019-12-01] MEDS: ALBUTEROL SULFATE (*SP) AEROSOL 1 PUFF 2 PUFF INHALATION ×4 (09:35→20:42)
--- NOTE | 2019-12-01 17:34 | PM.IMPN ---
Progress Note: A&P Assessment and Plan (1) Acute respiratory failure with hypoxia: Code(s): J96.01 - Acute respiratory failure with hypoxia Status: Acute Assessment and Plan: Patient presented to the emergency room with weakness. Patient was tachypneic and hypoxic. Patient was placed on 2 L on admission. Chest x-ray showing diffuse lung disease. Patient is COVID positive. Emperic antibiotics. No ABG. Dexamethasone was started 6 mg daily. She is now at 5 L. down from 15L (2) COVID-19: Code(s): U07.1 - COVID-19 Status: Acute Assessment and Plan: Patient has been symptomatic since November 15. Patient tested positive for COVID on 11/21/2019. She is almost 2 weeks out from infection. . She has been started on dexamethasone(08/25) and remdesivir(07/20) . Convalescent plasma given. 11/29. COVID inflammatory markers improved B.i.d. DVT prophylaxis (3) Pneumonia: Qualifiers: Laterality: bilateral Lung location: unspecified part of lung Pneumonia type: due to unspecified organism Qualified Code(s): J18.9 - Pneumonia, unspecified organism Code(s): J18.9 - Pneumonia, unspecified organism Status: Acute Assessment and Plan: Chest x-ray findings more consistent with COVID but cannot exclude underlying bacterial pneumonia which could explain her worsening symptoms so far out from onset of symptoms. She also has bandemia on admission but normal white count. White count is low on admission related to viral illness but elevated immature cells to suggest bone marrow strain. BCx NGTD. Schedule Albuterol MDI. Continue Azithromycin and ceftriaxone D# 4,. added Robitussin for cough. (4) Hypertension: Qualifiers: Hypertension type: essential hypertension Qualified Code(s): I10 - Essential (primary) hypertension Code(s): I10 - Essential (primary) hypertension Status: Acute Assessment and Plan: Blood pressure reviewed on 12/01/2019. Blood pressure was soft on the day of admission but has improved today. Will continue to hold lisinopril. Will continue to monitor for now. . (5) Elevated LFTs: Code(s): R79.89 - Other specified abnormal findings of blood chemistry Status: Acute Assessment and Plan: AST and ALT mildly elevated on admission. Repeat levels are trending downward. Suspect related to COVID. . Continue to monitor LFTs. (6) Depression with anxiety: Code(s): F41.8 - Other specified anxiety disorders Status: Acute Assessment and Plan: Mood stable. Patient in good spirits. Continue escitalopram. Subjective Date/time seen: 12/01/19 17:34 Interval history: 49yo female with HTN here for increasing weakness. She has tested positive for COVID on November 20. Date of service 12/01/2019: Her sister is a pharmacist who was exposed by a co-worker. Patient complains mostly of a cough but is better. No nausea or vomiting. Appetite better. She has lost a sense of taste and smell. No chest pain. No shortness of breath. We did get the [facility] report showing that she was positive for COVID. Exam Narrative: Exam Narrative: AF 110/72 66 16 96% 5L Gen: NARD Chest: clear , hear no crackles today, , moving air better CV: RRR S1/S2; Abd: Soft. Obese. Nontender. Positive bowel sounds Ext: No pedal edema Neuro: No focal findings. Psych: Pleasant and cooperative. Normal mood and affect. Skin: Warm and dry. Objective Data Vital Signs Vital Signs: Vital Signs - 24 hr 11/30/19 18:00 11/30/19 20:00 11/30/19 22:00 Temperature 36.3 C L Pulse Rate 60 55 L 46 L Respiratory Rate 26 H 28 H 21 H Blood Pressure 102/65 156/81 H 125/75 Pulse Oximetry
[2019-12-01] MEDS: POTASSIUM CHLORIDE 20 MEQ TABLET 40 MEQ PO (18:40)
[2019-12-01] MEDS: REMDESIVIR 100 MG/NS 250 ML 100 MG/250 ML BAG 250 MG IVPB (21:58)
[2019-12-02] VITALS (13 sets, daily range): BP systolic 108–145; BP diastolic 64–85; PULSE 45–70; RESP 16–25; TEMP 36.1–37.1; O2SAT 92–99
[2019-12-02] MEDS: guaiFENesin/DEXTROMETHORPHAN 10 ML UDC PO ×3 (05:39→20:14)
[2019-12-02 05:53] LABS: D Dimer 0.65 ug/mL (<0.48)
[2019-12-02 05:58] LABS: Alanine Aminotransferase 28 U/L (4-35); Albumin Level 3.3 g/dL (3.5-5.1); Alkaline Phosphatase 56 U/L (38-126); Aspartate Amino Transferase 37 U/L (14-36); Bilirubin,Total 0.2 mg/dL (0.2-1.3); Blood Urea Nitrogen 14 mg/dL (7-17); CRP 2.1 mg/dL (<1.0); Calcium 8.2 mg/dL (8.4-10.2); Carbon Dioxide 32 mmol/L (22-30); Chloride 102 mmol/L (98-107); Estimated CRCL calculation 103 ml/min; Estimated Glomerular Filt Rate > 60; Glucose 101 mg/dL (65-105); Lactate Dehydrogenase 689 U/L (313-618); Sodium 140 mmol/L (137-145)
[2019-12-02] MEDS: FAMOTIDINE 20 MG/2 ML VIAL IV PUSH ×2 (08:43→20:02)
[2019-12-02] MEDS: ENOXAPARIN 40 MG/0.4 ML SYRINGE SUB-Q ×2 (08:43→20:02)
[2019-12-02] MEDS: ESCITALOPRAM OXALATE 10 MG TABLET 40 MG PO (08:43)
[2019-12-02] MEDS: DEXAMETHASONE SOD PHOS INJ 4 MG/ML VIAL 6 MG IV PUSH (08:44)
[2019-12-02] MEDS: ALBUTEROL SULFATE (*SP) AEROSOL 1 PUFF 2 PUFF INHALATION ×4 (09:00→20:45)
--- NOTE | 2019-12-02 15:58 | PM.IMPN ---
Progress Note: A&P Assessment and Plan (1) Acute respiratory failure with hypoxia: Code(s): J96.01 - Acute respiratory failure with hypoxia Status: Acute Assessment and Plan: Patient presented to the emergency room with weakness. Patient was tachypneic and hypoxic. Patient was placed on 2 L on admission. Chest x-ray showing diffuse lung disease. Patient is COVID positive. Emperic antibiotics. Dexamethasone was started 6 mg daily. She is now at 3 L. down from 15L (2) COVID-19: Code(s): U07.1 - COVID-19 Status: Acute Assessment and Plan: Patient has been symptomatic since November 15. Patient tested positive for COVID on 11/21/2019. She is almost 2 weeks out from infection. . She was started on dexamethasone(09/24) and remdesivir(08/20) . Convalescent plasma given. 11/29. COVID inflammatory markers improved each day B.i.d. DVT prophylaxis (3) Pneumonia: Qualifiers: Laterality: bilateral Lung location: unspecified part of lung Pneumonia type: due to unspecified organism Qualified Code(s): J18.9 - Pneumonia, unspecified organism Code(s): J18.9 - Pneumonia, unspecified organism Status: Acute Assessment and Plan: Chest x-ray findings more consistent with COVID but cannot exclude underlying bacterial pneumonia which could explain her worsening symptoms so far out from onset of symptoms. She also has bandemia on admission but normal white count. White count is low on admission related to viral illness but elevated immature cells to suggest bone marrow strain. BCx NGTD. Schedule Albuterol MDI. Continue Azithromycin and ceftriaxone D# 5,. added Robitussin for cough. (4) Hypertension: Qualifiers: Hypertension type: essential hypertension Qualified Code(s): I10 - Essential (primary) hypertension Code(s): I10 - Essential (primary) hypertension Status: Acute Assessment and Plan: Blood pressure reviewed on 12/02/2019. Blood pressure was soft on the day of admission but has improved today. Will continue to hold lisinopril. Will continue to monitor for now. . (5) Elevated LFTs: Code(s): R79.89 - Other specified abnormal findings of blood chemistry Status: Acute Assessment and Plan: AST and ALT mildly elevated on admission. Repeat levels essentially normal. Suspect related to COVID. . (6) Depression with anxiety: Code(s): F41.8 - Other specified anxiety disorders Status: Acute Assessment and Plan: Mood stable. Patient in good spirits. Continue escitalopram. Subjective Date/time seen: 12/02/19 15:58 Interval history: 49yo female with HTN here for increasing weakness. She has tested positive for COVID on November 20. Date of service 12/02/2019: Her sister is a pharmacist was + and who was exposed by a co-worker. Patient complains mostly of a cough but is better. No nausea or vomiting. Appetite better. No chest pain. No shortness of breath at rest. We did get the [facility] report showing that she was positive for COVID. Exam Narrative: Exam Narrative: AF 112/65 60 16 96% 3L Gen: NARD Chest: clear , hear no crackles today, , moving air better CV: RRR S1/S2; Abd: Soft. Obese. Nontender. Positive bowel sounds Ext: No pedal edema Neuro: No focal findings. Psych: Pleasant and cooperative. Normal mood and affect. Skin: Warm and dry. Objective Data Vital Signs Vital Signs: Vital Signs - 24 hr 12/01/19 16:00 12/01/19 18:00 12/01/19 20:00 Temperature 35.8 C L 36.6 C Pulse Rate 68 59 L 61 Respiratory Rate 23 H 21 H 20 Blood Pressure 111/71 119/74 Pulse Oximetry 96 97 98 12/01/19 20:44 12/01/19 22:00 12/02/19 00:00 T
--- NOTE | 2019-12-02 18:15 | PC.NURSE ---
This patient, Tameka Salmeron, was transferred to [ [id number]] on 12/02/19 at 1844. Personal belongings sent with patient. Belongings list checked and signed with receiving [ ]. Report given to [NELL Bautista @ [phone]. ]. Appropriate documentation sent with patient. Pt transferred via wheelchair w/ oxygen in place. No issues noted
--- NOTE | 2019-12-02 18:41 | PC.NURSE ---
Pt has been admitted to 3rd med/surg at 1830 on 12-02-2019.
[2019-12-02] MEDS: REMDESIVIR 100 MG/NS 250 ML 100 MG/250 ML BAG 250 MG IVPB (20:55)
[2019-12-03] VITALS (12 sets, daily range): BP systolic 104–123; BP diastolic 61–71; PULSE 54–84; RESP 16–18; TEMP 36.1–36.8; O2SAT 90–99
[2019-12-03 06:37] LABS: Basophils Percent Auto 0.4 % (0.2-1.2); Eosinophils Absolute Auto 0.1 K/mm3 (0-0.3); Hematocrit 39.4 % (37.0-47.0); Hemoglobin 12.5 g/dL (12.0-15.0); Immature Granulocyte Absolute 0.25 K/mm3 (0.00-0.031); Immature Granulocyte Percent A 2.3 % (0-0.5); Lymphocytes Absolute Auto 3.16 K/mm3 (0.9-3.2); Lymphocytes Percent Auto 28.9 % (18.3-44.2); Mean Corpuscular HGB Conc 31.7 g/dl (32-36); Mean Corpuscular Hemoglobin 28.7 pg (26-34); Mean Corpuscular Volume 90.4 fl (80-100); Mean Platelet Volume 10.1 fl (7.4-10.4); Monocytes Absolute Auto 0.6 K/mm3 (0.1-0.6); Neutrophils Absolute Auto 6.8 K/mm3 (1.3-6.7); Neutrophils Percent Auto 62.4 % (45.5-73.1); Platelet Count Result 429 k/mm3 (150-375); Red Blood Count 4.36 M/mm3 (4.2-5.4); Red Cell Distribution Width 12.8 % (11.5-14.5); White Blood Count 10.9 K/mm3 (4.5-10.0)
[2019-12-03 06:47] LABS: D Dimer 1.06 ug/mL (<0.48)
[2019-12-03 07:08] LABS: CRP 1.5 mg/dL (<1.0); Lactate Dehydrogenase 724 U/L (313-618)
[2019-12-03 08:37] LABS: Vitamin D 25 Hydroxy 29.6 ng/mL
[2019-12-03] MEDS: FAMOTIDINE 20 MG/2 ML VIAL IV PUSH ×2 (08:57→20:00)
[2019-12-03] MEDS: ESCITALOPRAM OXALATE 10 MG TABLET 40 MG PO (08:57)
[2019-12-03] MEDS: ENOXAPARIN 40 MG/0.4 ML SYRINGE SUB-Q ×2 (08:57→20:00)
[2019-12-03] MEDS: DEXAMETHASONE SOD PHOS INJ 4 MG/ML VIAL 6 MG IV PUSH (08:57)
[2019-12-03] MEDS: ALBUTEROL SULFATE (*SP) AEROSOL 1 PUFF 2 PUFF INHALATION ×4 (09:41→22:17)
[2019-12-03] MEDS: ERGOCALCIFEROL 50,000 UNIT CAPSULE 50000 UNITS PO (14:37)
--- NOTE | 2019-12-03 15:00 | PM.IMPN ---
Progress Note: A&P Assessment and Plan (1) Acute respiratory failure with hypoxia: Code(s): J96.01 - Acute respiratory failure with hypoxia Status: Acute Assessment and Plan: Patient presented to the emergency room with weakness. Patient was tachypneic and hypoxic. Patient was placed on 2 L on admission. Chest x-ray showing diffuse lung disease. Patient is COVID positive. Emperic antibiotics. Dexamethasone was started 6 mg daily. She is now at 2 L. down from 15L (2) COVID-19: Code(s): U07.1 - COVID-19 Status: Acute Assessment and Plan: Patient has been symptomatic since November 15. Patient tested positive for COVID on 11/21/2019. She is almost 2 weeks out from infection. . She was started on dexamethasone(11/24) and remdesivir(09/19 finsished 12/01) . Convalescent plasma given. 11/29. COVID inflammatory markers improved but ddimer still 1 B.i.d. DVT prophylaxis (3) Pneumonia: Qualifiers: Laterality: bilateral Lung location: unspecified part of lung Pneumonia type: due to unspecified organism Qualified Code(s): J18.9 - Pneumonia, unspecified organism Code(s): J18.9 - Pneumonia, unspecified organism Status: Acute Assessment and Plan: Chest x-ray findings more consistent with COVID but cannot exclude underlying bacterial pneumonia which could explain her worsening symptoms so far out from onset of symptoms. She also has bandemia on admission but normal white count. White count is low on admission related to viral illness but elevated immature cells to suggest bone marrow strain. BCx NGTD. Schedule Albuterol MDI. Continue Azithromycin and ceftriaxone D# 7 and can d/c after today,. added Robitussin for cough. repeat cxr today minimal improvement if any (4) Hypertension: Qualifiers: Hypertension type: essential hypertension Qualified Code(s): I10 - Essential (primary) hypertension Code(s): I10 - Essential (primary) hypertension Status: Acute Assessment and Plan: Blood pressure reviewed on 12/03/2019. Blood pressure was soft on the day of admission but has improved . Will continue to hold lisinopril with systolic today of 110. Will continue to monitor for now. . (5) Elevated LFTs: Code(s): R79.89 - Other specified abnormal findings of blood chemistry Status: Acute Assessment and Plan: AST and ALT mildly elevated on admission. Repeat levels essentially normal. Suspect related to COVID. . recheck am (6) Depression with anxiety: Code(s): F41.8 - Other specified anxiety disorders Status: Acute Assessment and Plan: Mood stable. Patient in good spirits. Continue escitalopram. Subjective Date/time seen: 12/03/19 15:00 Interval history: 49yo female with HTN here for increasing weakness. She has tested positive for COVID on November 20. Date of service 12/03/2019: Her sister is a pharmacist was + and who was exposed by a co-worker. Patient complains mostly of a cough but is better. No nausea or vomiting. Appetite better. No chest pain. No shortness of breath at rest. [facility] report was positive for COVID. Exam Narrative: Exam Narrative: AF 110/70 54 16 94% 2L Gen: NARD sitting in recliner Chest: clear , hear no crackles today, , moving air better CV: RRR S1/S2; Abd: Soft. Obese. Nontender. Positive bowel sounds Ext: No pedal edema Neuro: No focal findings. Psych: Pleasant and cooperative. Normal mood and affect. Skin: Warm and dry. Objective Data Vital Signs Vital Signs: Vital Signs - 24 hr 12/02/19 17:22 12/02/19 18:54 12/02/19 20:00 Temperature 36.6 C 37.1 C Pulse Rate 60 62 60 Respiratory Rate 16 18 18
[2019-12-03] MEDS: guaiFENesin/DEXTROMETHORPHAN 10 ML UDC PO (20:00)
[2019-12-04] VITALS (9 sets, daily range): BP systolic 102–138; BP diastolic 60–76; PULSE 52–103; RESP 16–20; TEMP 36.4–37.1; O2SAT 90–97
[2019-12-04] MEDS: guaiFENesin/DEXTROMETHORPHAN 10 ML UDC PO (02:48)
[2019-12-04 06:43] LABS: Alanine Aminotransferase 31 U/L (4-35); Albumin Level 3.3 g/dL (3.5-5.1); Alkaline Phosphatase 54 U/L (38-126); Aspartate Amino Transferase 32 U/L (14-36); Bilirubin,Total 0.2 mg/dL (0.2-1.3); CRP 1.1 mg/dL (<1.0); D Dimer 0.62 ug/mL (<0.48); Lactate Dehydrogenase 613 U/L (313-618)
[2019-12-04] MEDS: ALBUTEROL SULFATE (*SP) AEROSOL 1 PUFF 2 PUFF INHALATION ×2 (08:56→11:55)
[2019-12-04] MEDS: FAMOTIDINE 20 MG/2 ML VIAL IV PUSH (09:16)
[2019-12-04] MEDS: DEXAMETHASONE SOD PHOS INJ 4 MG/ML VIAL 6 MG IV PUSH (09:16)
[2019-12-04] MEDS: ESCITALOPRAM OXALATE 10 MG TABLET 40 MG PO (09:16)
[2019-12-04] MEDS: ENOXAPARIN 40 MG/0.4 ML SYRINGE SUB-Q (09:16)
--- NOTE | 2019-12-04 10:28 | HOMEO2EVAL ---
Home Oxygen Evaluation RC: Home Oxygen (O2) Evaluation Start: 12/04/19 07:24 Freq: ONCE Status: Active Protocol: RPE Activity Type Activity Date Activity User E-Sign Co-Sign Detail Recorded Client Recorded Date Recorded By Document 12/04/19 09:40 CLC [email or web address] 12/04/19 09:53 CLC Document 12/04/19 09:45 CLC [email or web address] 12/04/19 09:54 CLC Document 12/04/19 09:48 CLC [email or web address] 12/04/19 09:54 CLC 12/04/19 12/04/19 12/04/19 09:40 09:45 09:48 Home O2 Evaluation Test Phase Resting Exercise Resting Oxygen Delivery Room Air Room Air Room Air Pulse Oximetry (90-100 %) 93 95 90 Pulse Rate (60-100 beats/min) 77 103 H 95 Activity Tolerance Good Good Ambulation Distance (feet) 160 Treatment Charges O2 Evaluation
--- NOTE | 2019-12-04 10:28 | PCRCNOTE ---
HOME O2 EVAL COMPLETE. PT DOES NOT REQUIRE OXYGEN. DR RUSSO NOTIFIED.
--- NOTE | 2019-12-04 15:15 | PC.NURSE ---
Pt has discharge orders and has been wheeled out to the front of the building per staff. Pt had IV removed, discharge paperwork reviewed, and opportunity for questions provided.
--- NOTE | 2019-12-04 18:18 | PM.DS ---
DS: Admitting Diagnosis Admitting Diagnosis Admitting Diagnosis: COVID-19 DS: Discharge Diagnosis Discharge Diagnosis (1) Acute respiratory failure with hypoxia: Code(s): J96.01 - Acute respiratory failure with hypoxia Status: Acute Assessment and Plan: Patient presented to the emergency room with weakness. Patient was tachypneic and hypoxic. Patient was placed on 2 L on admission. Chest x-ray showing diffuse lung disease. Patient is COVID positive. . Dexamethasone was started 6 mg daily. Taper to room air by discharge 92% saturation (2) COVID-19: Code(s): U07.1 - COVID-19 Status: Acute Assessment and Plan: Patient has been symptomatic since November 15. Patient tested positive for COVID on 11/21/2019. She is almost 2 weeks out from infection. . She was started on dexamethasone(11/24) and remdesivir(09/19 finsished 12/01) . Convalescent plasma given. 11/29. COVID inflammatory markers just above normal at time of discharge B.i.d. DVT prophylaxis which will continue at home for 1 more week (3) Pneumonia: Qualifiers: Laterality: bilateral Lung location: unspecified part of lung Pneumonia type: due to unspecified organism Qualified Code(s): J18.9 - Pneumonia, unspecified organism Code(s): J18.9 - Pneumonia, unspecified organism Status: Acute Assessment and Plan: Chest x-ray findings more consistent with COVID but cannot exclude underlying bacterial pneumonia which could explain her worsening symptoms so far out from onset of symptoms. She also has bandemia on admission but normal white count. . BCx NGTD. Schedule Albuterol MDI. Continue Azithromycin and ceftriaxone D# 7 total,. added Robitussin for cough. repeat cxr 12/02 minimal improvement if any , will repeat in another 2-4 weeks with primary care (4) Hypertension: Qualifiers: Hypertension type: essential hypertension Qualified Code(s): I10 - Essential (primary) hypertension Code(s): I10 - Essential (primary) hypertension Status: Acute Assessment and Plan: Blood pressure reviewed on 12/04/2019. Blood pressure was soft on the day of admission but has improved . Will continue to monitor and hold if systolic pressure gets above 140 she should restart her [place]-inhibitor. (5) Elevated LFTs: Code(s): R79.89 - Other specified abnormal findings of blood chemistry Status: Acute Assessment and Plan: AST and ALT mildly elevated on admission. Repeat levels essentially normal. Suspect related to COVID. . (6) Depression with anxiety: Code(s): F41.8 - Other specified anxiety disorders Status: Acute Assessment and Plan: Mood stable. Patient in good spirits. Continue escitalopram. DS: Summary Hospital Course Hospital Course: 49-year-old hypertensive white female admitted with increasing shortness of breath with known COVID disease. Classic diffuse infiltrates on chest x-ray. Oxygen requirements steadily increased and was given remdesivir, Decadron, and convalescent plasma. With this treatment she she slowly improved and was on room air by the time of discharge satting 92%. She was sent home with 1 more week of Lovenox 40 mg subcu b.i.d. and 2 days further Decadron 6 daily Time Spent with Patient Time attestation: Total time spent providing and/or coordinating discharge services: 35 minutes DS: Data Data Completed and Pending Labs on day of discharge: Labs from last 24 hours 12/04/19 12/04/19 06:07 06:07 D-Dimer 0.62 H Total Bilirubin 0.2 Direct Bilirubin 0.0 AST 32 ALT 31 Alkaline Phosphatase 54 Lactate Dehydrogenase 613 C-Reactive Protein 1.1 Total Protein 6.0 L Albumin 3.3 L Discha
== END 2019-12-04 15:15 | disposition home or self-care (01) | DRG 177 ==
LOC: ANHED 14:36 → ANHICU 15:34 → ANH3MEDSUR 12-02 23:36 → ANHICU 12-06 15:23
PROVIDERS: Emergency Medicine Emergency Medical Services; Internal Medicine; Physician Assistant; Admitting Provider Internal Medicine; Emergency Provider Emergency Medicine; PCP Internal Medicine; Visit Provider Internal Medicine
DX: U07.1 COVID-19 (principal); J12.89 Other viral pneumonia; J96.01 Acute respiratory failure with hypoxia; Z68.43 Body mass index [BMI] 50.0-59.9, adult; E66.01 Morbid (severe) obesity due to excess calories; R79.89 Other specified abnormal findings of blood chemistry; I10 Essential (primary) hypertension; F41.8 Other specified anxiety disorders; Z79.899 Other long term (current) drug therapy; Z88.2 Allergy status to sulfonamides
CPT/HCPCS: 36415; 36430; 36600; 71045; 80048; 80053; 80076; 81001; 82306; 82375; 82550; 82728; 82805; 83050; 83605; 83615; 83690; 83735; 85025; 85380; 85610; 85730; 86140; 86850; 86900; 86901; 87040; 87086; 87088; 93005; 94618; 94640; 96361; 96365; 96367; 96375; 99285; A9270; J0131; J0456; J0696; J1100; J1650; J1940; J7030; J7050; J7120; P9059

== ENCOUNTER 2020-04-03 15:03 | Outpatient (CLI) | payer BC, SELFPAY ==
--- NOTE | ~2020-04-03 | CT_ITS ---
EXAMINATION: CTA chest PE protocol DATE: 04/03/2020 15:34 INDICATION: Pleuritic chest pain TECHNIQUE: Computed tomography angiography (CTA) of the chest was performed with 100 mL Omnipaque-350 intravenous contrast timed to evaluate the pulmonary arteries. Due to suboptimal contrast opacificat ion of the pulmonary central initial scan, repeat injection was made and the scan repeated. Coronal m aximum intensity projection 3D-reconstructions were created by the technologist. Automated exposure c ontrol and iterative reconstruction technique were employed. Exam dose: 1849.94 mGy-cm total exam DL P. COMPARISON: 12/03/2019 portable AP chest FINDINGS: There is diagnostic contrast enhancement of the pulmonary arteries on the second set of corwin ges. There is no evidence of pulmonary embolism. There is no thoracic aortic aneurysm or dissection. No hilar or mediastinal mass lesion or lymphadenopathy. Borderline heart size. No pericardial or pleural effusion. There are patchy mild primarily peripheral infiltrates and/or atelectasis or fibrotic change, left gr eater than right. Diffuse hepatic steatosis. Approximately 3 - 3.5 cm right renal cyst. Postoperative change of the stomach. Degenerative change of the cervical and thoracic spine. IMPRESSION: No evidence of pulmonary embolism Reviewed, dictated and finalized at [facility]. Reviewed, dictated and finalized at [facility]. TORY ATTENDANT
[2020-04-03 15:24] LABS: Estimated Glomerular Filt Rate > 60
== END 2020-04-03 15:04 | disposition home or self-care (01) ==
PROVIDERS: PCP Internal Medicine; Visit Provider Internal Medicine Critical Care Medicine
DX: R07.81 Pleurodynia (principal)
CPT/HCPCS: 71275; Q9967

== ENCOUNTER 2022-02-15 08:19 | Outpatient (CLI) | payer BC, SELFPAY ==
--- NOTE | ~2022-02-15 | MR_ITS ---
EXAMINATION: MR lumbar spine wo con DATE: 02/15/2022 09:05 INDICATION: Low back pain. TECHNIQUE: Magnetic resonance imaging (MRI) of the lumbar spine was performed without intravenous con trast. Sequences included sagittal T2-weighted FSE, sagittal T2-weighted FS FSE, sagittal T1-weighted FSE, and axial T2-weighted FSE. COMPARISON: None FINDINGS: There is 4 degrees levocurvature of lumbar spine. There is 5 mm retrolisthesis of L2 on L3 and 3 mm anterolisthesis of L4 on L5. Vertebral body heights are normal. There is severely decreased disc height at L2-L3, mildly decreased disc height at L4-L5, and severely decreased disc height at L5 -S1 with endplate remodeling. The distal spinal cord signal intensity is normal. The conus medullaris is at L2. The following disc levels are specifically discussed: L1-L2: The disc does not extend beyond the endplate margin. There is mild bilateral facet joint osteo arthritis. There is no neural foraminal stenosis. There is no central canal stenosis. L2-L3: The disc is bulging and has an annular fissure. There is moderate bilateral facet joint osteoa rthritis. There is moderate right and mild left neural foraminal stenosis. There is mild central olinda l stenosis. L3-L4: The disc is bulging. There is severe bilateral facet joint osteoarthritis. There is mild bilat eral neural foraminal stenosis. There is no central canal stenosis. L4-L5: The disc is bulging and has an annular fissure. There is severe bilateral facet joint osteoart hritis. There is mild bilateral neural foraminal stenosis. There is mild central canal stenosis. L5-S1: The disc is bulging and has an annular fissure. There is severe bilateral facet joint osteoart hritis. There is mild bilateral neural foraminal stenosis. There is mild central canal stenosis. IMPRESSION: 1. Severe lumbar spondylosis. Reviewed, dictated and finalized at location [facility].
== END 2022-02-15 08:20 | disposition home or self-care (01) ==
PROVIDERS: PCP Internal Medicine
DX: M47.817 Spondylosis without myelopathy or radiculopathy, lumbosacral region (principal); M47.816 Spondylosis without myelopathy or radiculopathy, lumbar region
CPT/HCPCS: 72148

== ENCOUNTER 2024-06-10 15:03 | Emergency (ER) | payer OTHER, SELFPAY ==
--- NOTE | 2024-06-10 15:06 | ED.URI ---
HPI - URI/Sore Throat General Chief Complaint: Upper Respiratory Infection Stated Complaint: cough, rattling in chest Time Seen by Provider: 06/10/24 15:05 Source: patient Mode of arrival: ambulatory Limitations: no limitations History of Present Illness HPI Narrative: Patient is a 54-year-old female who presents with persistent cough. Patient states symptoms started right after and took azithromycin and a Medrol Dosepak 4-5 days into symptoms. Patient states she never has had relief of symptoms. Patient was on cruise 2 weeks ago and was seen by On board was given 1 week of cefdinir. Patient finished cefdinir a week ago today. Patient states cough is worse at night and NyQuil helps more than the cough syrup with codeine. Denies any fever, chills, nausea, vomiting, diarrhea, congestion, sore throat. Related Data Home Medications ?Medication ?Instructions ?Recorded ?Confirmed ?Last Taken ?Type escitalopram oxalate 20 mg tablet 40 mg PO DAILY 11/27/19 06/10/24 11/27/19 09:00 History lisinopril 20 mg tablet 20 mg PO DAILY 11/27/19 06/10/24 11/27/19 09:00 History diclofenac sodium 75 mg 75 mg PO Q12H 06/10/24 06/10/24 Unknown History tablet,delayed release duloxetine 40 mg capsule,delayed 40 mg PO DAILY 06/10/24 06/10/24 Unknown History release montelukast 10 mg tablet 10 mg PO QPM 06/10/24 06/10/24 Unknown History rosuvastatin 20 mg tablet 20 mg PO DAILY 06/10/24 06/10/24 Unknown History tirzepatide (weight loss) 15 15 mg subcut WEEKLY 06/10/24 06/10/24 Unknown History mg/0.5 mL subcutaneous pen injector (Zepbound) Allergies Allergy/AdvReac Type Severity Reaction Status Date / Time Sulfa (Sulfonamide Allergy Rash Verified 06/10/24 15:28 Antibiotics) Review of Systems Review of Systems: All systems reviewed & are unremarkable except as noted in HPI and below Constitutional: Constitutional: Denies body ache(s), Denies chills, Denies fatigue, Denies fever(s), Denies headache(s), Denies malaise and Denies weakness Eyes: Eyes: Denies blurry vision, Denies itchy eyes and Denies loss of vision ENT: Denies otalgia, Denies headache(s), Denies nasal congestion, Denies sinus pain and Denies sore throat Cardiovascular: Cardiovascular: Denies chest pain, Denies irregular heart rhythm and Denies dyspnea Respiratory: Respiratory: Reports cough and Denies dyspnea Gastrointestinal: Gastrointestinal: Denies abdominal pain, Denies diarrhea, Denies nausea and Denies vomiting Musculoskeletal: Musculoskeletal: Denies back pain, Denies myalgias and Denies arthralgias Integumentary/Breasts: Skin/Breast: Denies pruritus and Denies rash Neurologic: Denies headache(s), Denies loss of vision and Denies weakness Psychiatric: Psychiatric: Reports no additional psychiatric complaints Endocrine: Endocrine: Denies fatigue Allergic/Immunologic: Allergic/Immunologic: Denies itchy eyes PMFSH Past Medical History Medical History Osteoarthritis Depression with anxiety Hypertension Morbid obesity Surgical History Surgical History History of ventral hernia repair (~2005) History of gastric bypass (~2003) History of orthopedic surgery Family History Family History Mother Lung cancer Father Heart disease Sibling Hypertension Social History Social History Social History: Surrogate decision maker: Vijay Salmeron, spouse. Code status: Full code. Smoking status: Never smoker Alcohol intake: never Substance use: never Additional living arrangements comments: Patient lives with her in [place]. Additional occupation/education comments: Has been working at home since July 2019. Gender identity (if verbalized by the patient): Female Spiritual care concerns: No Comments At time of signature, agree with nursing past medical, surgical, social and family history. There is no relevant family history pertinent to the presenting complaint. Exam Const: General: cooperative, healthy appearing, comfortable, no acute distress and well nourished Nutritional Appearance: well nourished Orientation/consciousness: patient oriented x3 Limitations: no limitations HENMT: Head: normal to inspection, normocephalic and atraumatic Ears: hearing grossly normal bilaterally, external ears normal, TM's normal bilaterally, EAC's normal and no periauricular adenopathy Face/Nose/Sinus: Normal external nose present, Normal nasal mucous membranes and turbinates present, normal facial exam, sinuses nontender and face symmetric Face and sinus: normal facial exam, sinuses nontender and face symmetric Mouth: Yes Normal oral and palatal mucosa present, Yes lip normal, Yes tongue normal, Yes Normal salivary glands and ducts present, Yes oropharynx normal and Yes moist mucous membranes Teeth and gingiva: dentition normal Throat: posterior oropharynx normal, tonsils normal and uvula midline Eyes: General: appearance normal, both eyes and all related structures Alignment and Position: alignment normal and position normal Periorbital: periorbital findings normal Eyelids: eyelids normal Pupils: Equal, round and reactive pupils present Neck: Neck: normal visual inspection, full ROM, no lymphadenopathy and supple Chest: Chest palpation & inspection: normal inspection of the chest and normal palpation of entire chest wall Resp: Effort & Inspection: normal respiratory effort, able to speak in complete sentences and Actively coughing dry Auscultation: clear to auscultation bilaterally, no crackles, no rales, no rhonchi and no wheezes Cardio: Rate: regular rate Rhythm: regular rhythm Heart sounds: S1 normal heart sound present and S2 normal heart sound present GI: Inspection: normal to inspection Skin: General skin exam: normal color and no rashes or lesions noted Neuro: General: patient oriented x3 and moves all extremities Cranial nerves: Yes Equal, round and reactive pupils present Speech: normal speech Gait exam (Neuro): Normal gait present Extrem: General: normal to inspection, full ROM and no edema Psych: Appearance: grossly normal and well kempt Mental Status: mental status grossly normal Speech and movement: Normal speech and movement present Affect: normal affect Attitude: cooperative Thought process: Normal thought process present Course Course Emergency Course: Discharge instructions reviewed with patient, as well as provided in writing per nursing staff. The instructions also include specific and strict return/GO TO THE ER as well as f/u information. All questions have been answered, and the patient deny any further questions with discharge and discharge plan. Portions of this record may have been created with voice recognition software Level of Care: Express Care Visit Vital Signs Vital signs: Vital Signs Temperature 36.2 C L 06/10/24 15:13 Pulse Rate 84 06/10/24 15:13 Respiratory Rate 16 06/10/24 15:13 Blood Pressure 119/74 06/10/24 15:13 Pulse Oximetry 98 06/10/24 15:13 Oxygen Delivery Room Air 06/10/24 15:13 Temperature 36.2 C L 06/10/24 15:13 Pulse Rate 84 06/10/24 15:13 Respiratory Rate 16 06/10/24 15:13 Blood Pressure 119/74 06/10/24 15:13 Pulse Oximetry 98 06/10/24 15:13 Oxygen Delivery Room Air 06/10/24 15:13 Reviewed MDM - URI/Sore Throat MDM Narrative Medical decision making narrative: Pt well hydrated appearing, in no respiratory distress, hemodynamically stable. Recommend supportive care. The patient is stable at time of discharge the clinical impression was discussed and the patient was given the opportunity to ask questions, which were addressed as completely as possible given the information available at present. Anticipatory guidance and return to care precautions were discussed and the importance of primary care follow-up was stressed and encouraged. The patient voiced understanding of the plan, indications to return, and the need for follow-up. Differential diagnosis considered: Jones virus, strep pharyngitis, allergic rhinitis, upper respiratory tract infection, sinusitis, rhinosinusitis, nasopharyngitis. viral pharyngitis, otitis media, otitis externa, otitis effusion, foreign body, cerumen impaction, viral syndrome, and influenza.? Exam findings show no acute concerns or changes; patient is non-toxic appearing and is in no distress.? Patient is appropriate for outpatient treatment and follow-up.? Medical Records Attestation: I reviewed the patient's medical records. Discharge Plan Discharge Clinical Impression: Bronchitis Patient Disposition: Home, Self-Care Condition: Stable Instructions: Acute Bronchitis (ED) Additional Instructions: Use Tessalon Perles as needed for cough. Use inhaler with spacer as needed. Other symptomatic treatments include: -Alternate Tylenol and Motrin per package directions for fever or pain: Tylenol 650-1000mg by mouth every 4-6 hours. Do not exceed 4000mg in 24 hours. Advil (Ibuprofen) 600 mg by mouth every 6 hours. Do not exceed 2400mg in 24 hours. 8 AM: Tylenol 11 AM: Ibuprofen 2 PM: Tylenol 5 PM: Ibuprofen 8 PM: Tylenol 11 PM: Ibuprofen 2 AM: Tylenol 5 AM: Ibuprofen -Antihistamine medication such as Benadryl at night and Zyrtec/Claritin/Marge during the day can help improve symptoms. -Use Flonase twice a day for 5 days then daily to help reduce the inflammation and dry up your sinuses. -You can also use Sudafed or Mucinex. Be sure to drink plenty of water with these medications at least 8 ounces with every dose and it is important to drink 8 to 10 glasses of water per day. Water is a natural decongestant -Eat and drink things that are easy to swallow, like tea or soup, or popsicles. -Oral rinses such as: Salt water gargles and/or may use topical anesthetic (eg. Chloraseptic spray) or lozenges to relieve dryness or throat pain). -Frequent hand washing or hand jailer chief is one of the best ways to prevent spread of infection. -Using a vaporizer or humidifier at night will also help thin secretions and help with coughing up phlegm. -Follow up with primary care provider in 3-5 days if condition is not improving - For new or worsening symptoms go directly to the nearest ER Patient Language: Paraguayan Prescriptions: New (DME) Aerochamber MV Spacer See Rx Instructions .Route Qty: 1 0RF Rx Instructions: As directed benzonatate 100 mg capsule 100 mg PO BID PRN (Reason: cough) Qty: 14 0RF albuterol sulfate 90 mcg/actuation HFA aerosol inhaler 2 puff inhalation QID PRN (Reason: shortness of breath or wheezing) Qty: 6.7 0RF No Action diclofenac sodium 75 mg tablet,delayed release (DR/EC) 75 mg PO Q12H duloxetine 40 mg capsule,delayed release(DR/EC) 40 mg PO DAILY montelukast 10 mg tablet 10 mg PO QPM rosuvastatin 20 mg tablet 20 mg PO DAILY Zepbound 15 mg/0.5 mL pen injector 15 mg SUBCUT WEEKLY lisinopril 20 mg Tablet 20 mg PO DAILY escitalopram oxalate 20 mg Tablet 40 mg PO DAILY Follow-up/Referrals: Javier,Jossue Haines MD [Primary Care Provider] - 3 Days Stand Alone Forms: Work/School Release IP Time of Disposition: 15:29
[2024-06-10 15:13] VITALS: BP 119/74; PULSE 84; RESP 16; TEMP 36.2; O2SAT 98
== END 2024-06-10 15:35 | disposition home or self-care (01) ==
PROVIDERS: Emergency Provider Nurse Practitioner Family; PCP Internal Medicine
DX: J40 Bronchitis, not specified as acute or chronic (principal); F41.8 Other specified anxiety disorders; I10 Essential (primary) hypertension; Z98.84 Bariatric surgery status; E66.01 Morbid (severe) obesity due to excess calories; Z68.42 Body mass index [BMI] 45.0-49.9, adult
CPT/HCPCS: 99213; G0463